=== PATIENT | male | born 1955 | race Caucasian/White ===

== ENCOUNTER 2017-01-08 08:38 | Outpatient (CLI) | payer OTHER, MEDICARE ==
[2017-01-08 09:09] LABS: BASOPHILS % 0.5 (0.0-1.5); EOSINOPHILS % 1.9 % (0.0-6.8); LYMPHOCYTES # 2.1 # k/uL (0.6-4.0); MONOCYTES # 0.3 # k/uL (0.0-0.9); MONOCYTES % 3.8 % (0.0-11.0); NEUTROPHILS # 4.9 # k/uL (1.4-7.7)
[2017-01-08 09:40] LABS: eGFR (African) > 60; eGFR (Non-African) > 60
== END 2017-01-08 08:40 ==
LOC: LAB 08:38
PROVIDERS: ATTEND Internal Medicine Nephrology
DX: I10 Essential (primary) hypertension (principal); E11.69 Type 2 diabetes mellitus with other specified complication; G47.30 Sleep apnea, unspecified; M54.5 Low back pain; Z68.35 Body mass index [BMI] 35.0-35.9, adult
CPT/HCPCS: 36415; 80053; 80061; 83036; 84550; 85025

== ENCOUNTER 2018-05-08 08:29 | Outpatient (CLI) | payer OTHER, MEDICARE ==
[2018-05-08 08:51] LABS: BASOPHILS % 0.9 (0.0-1.5); EOSINOPHILS % 2.3 % (0.0-6.8); MEAN CORPUSCULAR HEMOGLOBIN 35.2 pg (28.0-34.0); MEAN CORPUSCULAR VOLUME 100.8 fl (80.0-100.0); NEUTROPHILS # 2.6 # k/uL (1.4-7.7)
[2018-05-08 09:21] LABS: eGFR (African) > 60; eGFR (Non-African) > 60
== END 2018-05-08 13:33 ==
LOC: LAB 08:29
PROVIDERS: ATTEND Internal Medicine Nephrology
DX: I10 Essential (primary) hypertension (principal); Z68.33 Body mass index [BMI] 33.0-33.9, adult; E11.69 Type 2 diabetes mellitus with other specified complication; G47.30 Sleep apnea, unspecified; M54.5 Low back pain
CPT/HCPCS: 36415; 80053; 80061; 85025